=== PATIENT | male | born 1990 | race Caucasian/White ===

== ENCOUNTER 2016-06-10 19:15 | Emergency (ER) | payer MEDICAID ==
[~2016-06-10] VITALS: Ht 188 cm; Wt 90.7 kg
[~2016-06-10 19:15] MED LIST: ATENOLOL50 M1 PO; AUGMENTIN 875-1 EACH PO; ENALAPRIL MALEA10 MG PO
--- NOTE | 2016-06-10 19:23 | Emergency Room Report ---
History of Present Illness Time Seen by 1920 Presenting Problem in Triage Pt arrived:Walked Presenting Problem:PT C/O CP THAT HAS BEEN PRESENT FOR A FEW DAYS. PT STATES THE PAIN HAS STAYED CONSISTANT. PT DENIES ANY OTHER SYMPTOMS OTHER THAN THE PAIN Onset of symptoms date/time:/ or onset unknown for:MEDICAL HX UNKNOWN Treatment Prior to Arrival: HEALTHCARE MANAGEMENT CONSULTANT Provided by: Sepsis Risk Assessment: Temp: 98 B/P: 169/104 MAP: 133 Pulse: 97 Resp: 18 Recent fever? N Clinical Suspician of Infection? N Mental Status: 1 - Regular (Normal Baseline) Sepsis Risk:Low Sepsis Risk Have you (or family members/close friends) recently traveled outside the [place]? N If Yes, where/when: Have you had exposure to infectious disease within the past month? N TB? Other? Specify: Source patient, RN notes reviewed Exam Limitations no limitations Comment This is a 26-year-old male with a past medical history significant for hypertension who takes atenolol and enalapril who presents to the emergency department for left-sided chest pain that has been there for approximately the last week. There are no exacerbating or alleviating factors. No associated shortness of breath, vomiting, cough, diaphoresis. He has had pain like this before associated with bronchitis but he has not felt unwell or had a cough. He is concerned because he has been out of his atenolol for several days. He has been taking his enalapril. He has no history of DVT or PE. ALLERGIES Coded Allergies: No Known Allergies (06/12/15) Home Medications Reported Medications Atenolol 50 MG PO DAILY #30 Enalapril Maleate 10 MG PO BID #60 History Medical History General CAD? No Angina: No VA: No Hypertension? Yes Hyperlipidemia? No CHF? No DVT? No PE? No COPD? No Asthma? No Anemia? No GERD? No Gastric ulcers? No GI Bleed? No Hernia? No Thyroid Problems? No Hypothyroidism? No CVA? No Seizures? No Diabetes? No End Stage Renal Disease? No UTI? No Stones? No BPH? No GB Disease: No Nephritic Syndrome? No Asplenia? No Hepatitis? No Sickle Cell Disease? No Arthritis? No Migraines? No Cataracts? No Glaucoma? No MRSA? No HIV? No TB? No Anxiety? No Depression? No Cancer? No More? Yes Additional hx: MVP Immunization Hx DT/Tetanus < 1 Year Ago Flu [id number] Flu Season Pneumonia Never Had Surgical Hx Previous Surgery?Y Tonsils And/Or Adenoids Family History Family Hx Diabetes No CAD Yes Hypertension Yes Hyperlipidemia Yes Cancer Yes TB No Social History Smoking Hx Smoker: Current Every Day Smoker Tobacco: Yes Type Cigarettes Packs/day < 1 Pack Alcohol Alcohol: Yes Review of Systems All Other Systems Reviewed and Negative Physical Exam Vital Signs Vital Signs Date Time Temp Pulse Resp B/P Pulse O2 O2 Flow FiO2 Ox Delivery Rate 06/10 191 98.0 97 18 169/104 99 General Appearance normal appearance, WD/WN Eye Exam - bilateral eye normal exam, bilateral eye PERRL, bilateral eye EOMI Neck normal inspection, non-tender, supple, full range of motion Respiratory Status Yes: chest symmetrical, non tender chest. No: respiratory distress. Lung Sounds bilateral: normal breath sounds, lungs clear. Cardiovascular normal exam, regular rate/rhythm, no peripheral edema, no gallop, no JVD, no murmur, no rub, normal peripheral pulses Gastrointestinal normal bowel sounds, normal exam, non tender Neurologic alert, no motor/sensory deficits, oriented x 3 Skin intact, normal color, warm/dry Medical Decision Making LABS/Meds/Orders Pt receiving controlled substance in ED? No Results/Orders Laboratory Tests 06/10/161919: Sodium 138, Potassium 4.0, Chloride 102, Carbon Dioxide 29, BUN 12, Creatinine 0.9, Estimated Creat Clear 162, Estimated GFR (MDRD) 104, Glucose 97, Calcium 8.9, Total Bilirubin 0.3, AST 15, ALT 44, Alkaline Phosphatase 116, Troponin I < 0.02, Total Protein 8.2, Albumin 4.3, Globulin 3.9 H, Albumin/Globulin Ratio 1.1, WBC 12.5 H, RBC 5.37, Hgb 17.1, Hct 50.9, MCV 94.9, RDW 14.1, Plt Count 309, MPV 8.8, Gran % 67.5, Gran # 8.4 H, Lymphocytes % 24.0, Monocytes % 6.2, Eosinophils % 1.7, Basophils % 0.5, Lymphocytes # 3.0, Monocytes # 0.8, Eosinophils # 0.2, Basophils # 0.1, PUBS MCHC 33.4, MCH 31.7 H Current Medication Orders Sig/Lucian Start time Last Medication Dose Route Stop Time Status Admin Atenolol 50 MG ONCE ONE 06/10 1944 DC 06/10 PO 06/10 Atenolol 0 .STK-MED ONE 06/10 1931 DC .ROUTE Sodium Chloride 10 ML PRN PRN 06/10 1929 AC IV 06/11 1921 Orders Procedure Date/time Status ELECTROCARDIOGRAM REQUEST 06/10 1921 Active IV SALINE LOCK 06/10 1921 Active CHEST-PORTABLE 06/10 1920 Active TROPONIN I 06/10 1920 Complete CBC WITH AUTO DIFF 06/10 1920 Complete CHEM 12 PROFILE 06/10 1920 Complete CM/EKG CM/EKG EKG rate, NSR, no evid. of ischemic chgs, no ectopy, normal QRS, normal MA XRAY/CT/US XRAY/CT/US XRAY chest XR interpretation by reviewed by me Xray Results normal/NAD Departure Departure Disposition DC Home or Self Care(routine) Clinical Impression Primary Impression: Atypical chest pain Condition STABLE Referrals KENNY ARIZA APRN (Family): 1 Day-Call Office Gurvinder Wheeler MD Additional Instructions You will need to follow up with cardiology within the next 2 days and with your primary care provider in this same timeframe as well. Be sure to call tomorrow morning for an appointment time. Return to the emergency department for any worsening of symptoms. It is very important that you take your blood pressure medication as prescribed. ED Critical Care Critical Care No Comments Patient has a history of hypertension, now with left-sided chest pain with no exacerbating or alleviating factors. Chest pain has been ongoing for approximately the last week. Patient appears quite comfortable here. No history of coronary artery disease. ECG shows no signs of ischemia. He is PERC negative. His HEART score is 1 which puts him at a less than 1.7 percent risk of major adverse cardiac event in the next 45 days. This would put him appropriate for outpatient follow-up within the next 2 days. I have reassessed the patient at 1945 and he is chest pain-free. His story is not typical for unstable angina, and is unlikely to represent ACS. I have paged cardiology and I'm waiting their return call. In the meantime, I will have him follow-up in cardiology clinic within the next 2 days. He will need to call tomorrow for an appointment time. Return to the ED for any acute worsening of symptoms. He was given his dose of atenolol here tonight. He has refills on his atenolol at home and needs to get these refilled. He feels comfortable with the plan and expresses understanding of this to me. Discharged home. at [id number]
[2016-06-10 19:40] LABS: HEMOGLOBIN 17.1 g/dL (14.1-18.0)
[2016-06-10 19:43] LABS: BUN 12 mg/dL (7-18); GFR (ESTIMATED) 104 ML/MIN (>60)
[2016-06-10 20:00] VITALS: BP 151/98
--- NOTE | 2016-06-11 07:46 | RADIOLOGY REPORT PS360 ---
CHEST-PORTABLE HISTORY: chest pain ORDERING PHYSICIAN: Odin Roa MD PATIENT AGE: 26 years COMPARISON: None available FINDINGS: The cardiomediastinal silhouette and pulmonary vascularity are within normal limits. The lungs are clear without infiltrates, suspicious nodules, or pleural effusions. No acute bony abnormalities. IMPRESSION: Negative chest, no acute finding
== END 2016-06-10 20:01 | disposition home or self-care (01) ==
LOC: ER 19:15
PROVIDERS: Emergency Medicine
DX: R07.89 Other chest pain (principal); I10 Essential (primary) hypertension; Z72.0 Tobacco use; I34.0 Nonrheumatic mitral (valve) insufficiency